=== PATIENT | female | born 1980 | race Caucasian/White ===

== ENCOUNTER 2017-04-24 18:56 | Emergency (ER) | payer OTHER ==
[2017-04-24 19:15] VITALS: BP 110/81; PULSE 84; TEMP 97.8; BMI 22.2
[2017-04-24 20:11] LABS: URINE APPEARANCE CLOUDY; URINE BILIRUBIN NEGATIVE (NEGATIVE); URINE COLOR DKYELLOW; URINE GLUCOSE (UA) NEGATIVE (NEGATIVE); URINE KETONE NEGATIVE (NEGATIVE); URINE LEUK ESTERASE NEGATIVE (NEGATIVE); URINE NITRITE NEGATIVE (NEGATIVE); URINE UROBILINOGEN NEGATIVE E.U./dl (0.2-1.0)
--- NOTE | 2017-04-24 20:20 | PDOC ---
History of Present Illness - General History Source: Patient Exam Limitations: No Limitations <Angelika Lynch - Last Filed: 04/24/17 21:16> - General History Source: Patient Exam Limitations: No Limitations - History of Present Illness Initial Comments: 04/24/17 20:50 The patient is a 36 year old female, with no significant past medical history, who presents to the emergency department with discolored urine since earlier today. The patient reports that she had been experiencing hematuria for the past couple of days and was seen by urology two days ago. While at her urologist s office, she had a Garcia catheter placed and was prescribed Meloxicam and Bactrim, which she reports she has been taking. The patient reports that earlier today she noticed that her urine had started to become dark brown in color. The patient endorses some mild suprapubic pain but denies any fever, chills, dysuria or flank pain. The patient attempted to get into contact with her urologist today but was unsuccessful so she came to the ED for further evaluation. Allergies: None reported. Past Surgical History: None reported. Social History: Current everyday smoker. Denies alcohol or drug use. Urologist: Dr. Annie Alvarez <Kristel Briones - Last Filed: 04/24/17 22:29> - General Chief Complaint: Urinary Catheter Problem Stated Complaint: URINARY PROBLEM Time Seen by Provider: 04/24/17 19:29 Past History - Past Medical History Other medical history: denies - Psycho/Social/Smoking Cessation Hx Suicidal Ideation: No Smoking History: Current every day smoker Number of Cigarettes Smoked Daily: 1 Information on smoking cessation initiated: No <Angelika Lynch - Last Filed: 04/24/17 21:16> <Kristel Briones - Last Filed: 04/24/17 22:29> - Past Medical History Allergies/Adverse Reactions: Allergies Allergy/AdvReac Type Severity Reaction Status Date / Time No Known Allergies Allergy Verified 04/24/17 19:15 Home Medications: Ambulatory Orders Meloxicam [Mobic] 15 mg PO ASDIR 04/24/17 Sulfamethoxazole/Trimethoprim [Bactrim Ds -] 1 tab PO BID 04/24/17 Review of Systems - Review of Systems Able to Perform ROS?: Yes Comments:: 04/24/17 20:37 GENERAL/CONSTITUTIONAL: No fever or chills. No weakness. HEAD, EYES, EARS, NOSE AND THROAT: No change in vision. No ear pain or discharge. No sore throat. CARDIOVASCULAR: No chest pain or shortness of breath. RESPIRATORY: No cough, wheezing, or hemoptysis. GASTROINTESTINAL: +Suprapubic pain. No nausea, vomiting, diarrhea or constipation. GENITOURINARY: +Hematuria, change in urine color. No dysuria or frequency. MUSCULOSKELETAL: No joint or muscle swelling or pain. No neck or back pain. SKIN: No rash. NEUROLOGIC: No headache, vertigo, loss of consciousness, or change in strength/ sensation. ENDOCRINE: No increased thirst. No abnormal weight change. HEMATOLOGIC/LYMPHATIC: No anemia, easy bleeding, or history of blood clots. ALLERGIC/IMMUNOLOGIC: No hives or skin allergy. <Kristel Briones - Last Filed: 04/24/17 22:29> *Physical Exam - Vital Signs Last Vital Signs Temp Pulse Resp BP Pulse Ox 97.8 F 84 18 110/81 99 04/24/17 19:11 04/24/17 19:11 04/24/17 19:11 04/24/17 19:11 04/24/17 19:11 <Angelika Lynch - Last Filed: 04/24/17 21:16> - Vital Signs Last Vital Signs Temp Pulse Resp BP Pulse Ox 97.8 F 84 18 110/81 99 04/24/17 19:11 04/24/17 19:11 04/24/17 19:11 04/24/17 19:11 04/24/17 19:11 - Physical Exam Comments: 04/24/17 20:35 GENERAL: The patient is in no acute distress. HEAD: Normal with no signs of trauma. EYES: PERRLA, EOMI, sclera anicteric, conjunctiva clear. ENT: Ears normal, nares patent, oropharynx clear without exudates. Moist mucous membranes. NECK: Normal range of motion, supple without lymphadenopathy, JVD, or masses. LUNGS: Breath sounds equal, clear to auscultation bilaterally. No wheezes, and no crackles. HEART: Regular rate and rhythm, normal S1 and S2 without murmur, rub or gallop. ABDOMEN: Mild suprapubic tenderness. Soft, normoactive bowel sounds. No guarding , no rebound. No masses palpable. GENITOURINARY: Garcia catheter in place. EXTREMITIES: Normal range of motion, no edema. No clubbing or cyanosis. No erythema, or tenderness. NEUROLOGICAL: Cranial nerves II through XII grossly intact. Normal speech. No focal neurological deficits. MUSCULOSKELETAL: Back nontender to palpation, no CVA tenderness. SKIN: Warm, dry, normal turgor, no rashes or lesions noted. <Kristel Briones - Last Filed: 04/24/17 22:29> ED Treatment Course - LABORATORY CBC & Chemistry Diagram: 04/24/17 20:20 <Angelika Lynch - Last Filed: 04/24/17 21:16> - LABORATORY CBC & Chemistry Diagram: 04/24/17 20:20 <Kristel Briones - Last Filed: 04/24/17 22:29> Medical Decision Making - Medical Decision Making 04/24/17 20:11 A portion of this note was documented by scribe services under my direction. I have reviewed the details of the note, within reason, and agree with the documentation with the following case summary and management plan written by me. Nursing documentation reviewed and incorporated into medical decision making 36 yo F with no significant past medical history presenting to the ER with a complaint of discolored urine Pt states that she recently had an episode of hematuria which lasted 2 days She was seen by Urology 2 days ago Garcia cathether placed Initially, urine clear Today urine color changed Mild suprapubic tenderness No flank pain No excessive exercise, in fact pt has been laying in bed most of the day No pyridium 04/24/17 20:[address] Rowell He has no knowledge of this patient He has no access to her office chart He can not contact Dr Alvarez Recommends that pt follow up with him on Wednesday Will check BMP UA UCx 04/24/17 20:13 04/24/17 20:35 Laboratory Tests 04/24/17 20:00 Urine Protein 2+ H Urine Blood 3+ H Ur Leukocyte Esterase Negative Urine RBC 6359 Urine WBC 102 Urine Mucus Many 04/24/17 21:17 Laboratory Tests 04/24/17 20:20 BUN 16 Creatinine 0.6 pt refused to keep cathether in place Requesting that it be removed Cathether removed Pt to follow up with PMD and Urology Pt instructed to return to the ER for any other concerns or complaints <Angelika Lynch - Last Filed: 04/24/17 21:16> - Medical Decision Making 04/24/17 20:[address] Annie Alvarez at at 20:05. Referred to answering service, awaiting callback. Dr. Rowell returned call at 20:10, case discussed. <Kristel Briones - Last Filed: 04/24/17 22:29> *DC/Admit/Observation/Transfer - Discharge Dispostion Admit: No <Angelika Lynch - Last Filed: 04/24/17 21:16> - Attestations Scribe Attestion: 04/24/17 20:28 Documentation prepared by Kristel Briones, acting as medical record coder for Angelika Lynch MD. <Kristel Briones - Last Filed: 04/24/17 22:29> Diagnosis at time of Disposition: Hematuria - Discharge Dispostion Disposition: HOME Condition at time of disposition: Stable - Referrals Referrals: STAFF,NOT ON [Primary Care Provider] - Annie Alvarez MD [Staff Physician] - - Patient Instructions Printed Discharge Instructions: DI for Hematuria Additional Instructions: Thank you for coming in to the ER Please follow up with your primary care physician and your urologist Please monitor yourself for fevers, flank pain, pain in your lower abdomen Return to the ER for ANY concerns or complaints or any new symptoms Please continue your antibiotics
[2017-04-24 20:30] LABS: URINE BLOOD 3+ (NEGATIVE); URINE PROTEIN 2+ (NEGATIVE)
[2017-04-24 20:31] LABS: URINE MUCUS MANY; URINE RBC 6359 /hpf (0-3); URINE WBC 102 /hpf (3-5)
[2017-04-24 20:56] LABS: CALCIUM 8.9 mg/dL (8.5-10.1); COCKROFT - GAULT 142.4855; CREATININE 0.6 mg/dL (0.55-1.02)
== END 2017-04-24 21:22 | disposition home or self-care (01) ==
LOC: JER 18:56
PROC: 0TPB70Z Removal of Drainage Device from Bladder, Via Natural or Artificial Opening (ICD-10-PCS; principal; 2017-04-24)
DX: R31.9 Hematuria, unspecified (principal); Z46.6 Encounter for fitting and adjustment of urinary device
CPT/HCPCS: 36415; 80048; 81003; 81015; 87086; 99282-25